=== PATIENT | male | born 1955 | race Caucasian/White ===

== ENCOUNTER 2021-01-04 10:05 | Inpatient (IN) ==
[2021-01-04] MEDS ORDERED: Isovue-370 500 ML BOTTLE IVP ONE (12:24)
[2021-01-04 13:19] LABS: Basophils # 0.1 K/mcL (0.0-0.2); Basophils % 0.4 %; Eosinophils # 0.1 K/mcL (0.0-0.6); Eosinophils % 0.7 %; Hematocrit 48.8 % (37.5-50.1); Hemoglobin 15.9 g/dL (12.9-16.9); Immature Granulocytes % 0.7 % (0-4); Lymphocytes # 2.1 K/mcL (0.6-4.6); Lymphocytes % 17.2 %; Mean Corpuscular HGB Conc 32.6 g/dL (31.6-35.5); Mean Corpuscular Hemoglobin 28.1 pg (28.0-33.3); Mean Corpuscular Volume 86.2 fL (83.0-100.0); Mean Platelet Volume 10.3 fL (9.4-12.4); Monocytes % 8.6 %; Neutrophils # 8.6 K/mcL (1.6-8.9); Platelet Count 234 K/mcL (140-400); Red Blood Count 5.66 M/mcL (4.19-5.50); Red Cell Distribution Width 13.2 % (11.5-14.5); Segmented Neutrophils % 72.4 %; White Blood Count 11.9 K/mcL (4.3-11.1)
[2021-01-04 13:37] LABS: BUN/Creatinine Ratio 19 (6-26); Blood Urea Nitrogen 20 mg/dL (8-23); Calcium 9.4 mg/dL (8.6-10.3); Carbon Dioxide 27 mEq/L (23-29); Chloride 103 mEq/L (98-107); Glucose 90 mg/dL (70-105); Osmolality,Calculated 286 (280-300); Potassium 3.9 mEq/L (3.5-5.1); Sodium 137 mEq/L (136-145); eGFR For African Americans > 60 (> 60); eGFR For Non-African Americans > 60 (> 60)
[2021-01-04] MEDS ORDERED: Piperacillin/Tazobactam 3.375 GM in 0.9 % Sodium Chloride Mini Bag 100 ML IVPB ONE (15:12)
[2021-01-04] MEDS ORDERED: Tdap (Boostrix) Vaccine 0.5 ML SYRINGE IM ONE (15:42)
[2021-01-04] MEDS ORDERED: Vancomycin 1,500 MG/265 ML IV.SOLN IVPB ONE (16:00)
[2021-01-04] MEDS ORDERED: Naloxone 0.4 MG/ML INJ IVP PRN (16:12)
[2021-01-04] MEDS ORDERED: Ondansetron 4 MG/2 ML VIAL IVP PRN (16:12)
[2021-01-04] MEDS ORDERED: Morphine Sulfate 2 MG/ML SYRINGE IVP PRN (16:15)
[2021-01-04 16:25] LABS: Troponin I 0.04 ng/mL (< 0.04)
[2021-01-04] MEDS: niCARdipine 20 MG/200 ML MLS IVC SCH ×2 (16:55→20:40)
[2021-01-04 17:45] LABS: Thyroid Stimulating Hormone 1.596 mcIU/mL (0.340-5.600)
[2021-01-04] MEDS ORDERED: *HR* LORazepam 2 MG/ML VIAL IVP PRN ×3 (20:49)
[2021-01-04] MEDS: Nicotine 21 MG PATCH.TD24 TD SCH (22:06)
[2021-01-05] MEDS: niCARdipine 20 MG/200 ML MLS IVC SCH ×5 (00:28→22:37)
[2021-01-05] MEDS: Piperacillin/Tazobactam 3.375 GM in 0.9 % Sodium Chloride Mini Bag 100 ML IVPB SCH ×3 (00:29→16:32)
[2021-01-05 02:02] LABS: BUN/Creatinine Ratio 19 (6-26); Blood Urea Nitrogen 17 mg/dL (8-23); Calcium 8.9 mg/dL (8.6-10.3); Carbon Dioxide 22 mEq/L (23-29); Chloride 103 mEq/L (98-107); Glucose 108 mg/dL (70-105); Osmolality,Calculated 284 (280-300); Potassium 3.3 mEq/L (3.5-5.1); Sodium 136 mEq/L (136-145); eGFR For African Americans > 60 (> 60); eGFR For Non-African Americans > 60 (> 60)
[2021-01-05] MEDS: Vancomycin 1,500 MG/265 ML IV.SOLN IVPB SCH ×3 (05:25→21:35)
[2021-01-05] MEDS ORDERED: Potassium Chloride 40 MEQ, Lidocaine 1% 2 ML in 0.9 % Sodium Chloride 500 ML IVPB ONE (07:56)
[2021-01-05] MEDS ORDERED: amLODIPine 5 MG TABLET PO SCH (09:15)
[2021-01-05] MEDS ORDERED: amLODIPine 5 MG TABLET PO ONE (14:53)
[2021-01-05] MEDS ORDERED: lisinopriL 10 MG TABLET PO SCH ×2 (15:00)
[2021-01-05] MEDS ORDERED: Lidocaine/EPI 1:200k 1% PF 10 ML VIAL ONE (17:40)
[2021-01-05] MEDS ORDERED: *HR* Propofol 200 MG/20 ML VIAL IVP ONE (18:13)
[2021-01-05] MEDS ORDERED: Ondansetron 4 MG/2 ML VIAL ONE (18:13)
[2021-01-05] MEDS ORDERED: *HR* Midazolam HCl 2 MG/2 ML VIAL ONE (18:13)
[2021-01-05] MEDS ORDERED: *HR* FentaNYL (PF) 100 MCG/2 ML VIAL ONE (18:13)
[2021-01-05] MEDS ORDERED: Lidocaine -MPF 2% 2 ML VIAL ONE (18:13)
[2021-01-05] MEDS ORDERED: CloNIDine Patch 0.1 MG PATCH (WEEKLY) ONE ×3 (18:26→18:27)
[2021-01-05] MEDS: Nicotine 21 MG PATCH.TD24 TD SCH (21:31)
[2021-01-06] MEDS: Piperacillin/Tazobactam 3.375 GM in 0.9 % Sodium Chloride Mini Bag 100 ML IVPB SCH ×3 (01:40→15:16)
[2021-01-06 01:44] LABS: Basophils % 0.2 %; Hematocrit 45.6 % (37.5-50.1); Hemoglobin 15.1 g/dL (12.9-16.9); Immature Granulocytes % 0.7 % (0-4); Lymphocytes # 0.8 K/mcL (0.6-4.6); Lymphocytes % 6.2 %; Mean Corpuscular HGB Conc 33.1 g/dL (31.6-35.5); Mean Corpuscular Hemoglobin 28.1 pg (28.0-33.3); Mean Corpuscular Volume 84.9 fL (83.0-100.0); Mean Platelet Volume 10.5 fL (9.4-12.4); Monocytes # 0.2 K/mcL (0.0-1.3); Monocytes % 1.6 %; Neutrophils # 11.1 K/mcL (1.6-8.9); Platelet Count 267 K/mcL (140-400); Red Blood Count 5.37 M/mcL (4.19-5.50); Red Cell Distribution Width 13.2 % (11.5-14.5); Segmented Neutrophils % 91.3 %; White Blood Count 12.2 K/mcL (4.3-11.1)
[2021-01-06 01:52] LABS: BUN/Creatinine Ratio 20 (6-26); Blood Urea Nitrogen 19 mg/dL (8-23); Calcium 9.1 mg/dL (8.6-10.3); Carbon Dioxide 24 mEq/L (23-29); Chloride 103 mEq/L (98-107); Glucose 225 mg/dL (70-105); Osmolality,Calculated 289 (280-300); Potassium 3.4 mEq/L (3.5-5.1); Sodium 135 mEq/L (136-145); eGFR For African Americans > 60 (> 60); eGFR For Non-African Americans > 60 (> 60)
[2021-01-06] MEDS: niCARdipine 20 MG/200 ML MLS IVC SCH ×4 (06:08→20:08)
[2021-01-06] MEDS: amLODIPine 5 MG TABLET PO SCH (07:22)
[2021-01-06] MEDS ORDERED: lisinopriL 10 MG TABLET PO SCH (09:00)
[2021-01-06] MEDS: Vancomycin 1,500 MG/265 ML IV.SOLN IVPB SCH ×2 (09:19→20:20)
[2021-01-06] MEDS ORDERED: lisinopriL 10 MG TABLET PO ONE (15:29)
[2021-01-06] MEDS: Nicotine 21 MG PATCH.TD24 TD SCH (22:51)
[2021-01-07] MEDS: Piperacillin/Tazobactam 3.375 GM in 0.9 % Sodium Chloride Mini Bag 100 ML IVPB SCH ×2 (00:20→08:08)
[2021-01-07] MEDS: niCARdipine 20 MG/200 ML MLS IVC SCH ×4 (00:33→12:36)
[2021-01-07 01:44] LABS: Basophils % 0.2 %; Hematocrit 43.7 % (37.5-50.1); Hemoglobin 14.6 g/dL (12.9-16.9); Immature Granulocytes % 0.6 % (0-4); Lymphocytes # 1.7 K/mcL (0.6-4.6); Lymphocytes % 9.3 %; Mean Corpuscular HGB Conc 33.4 g/dL (31.6-35.5); Mean Corpuscular Hemoglobin 28.7 pg (28.0-33.3); Mean Corpuscular Volume 85.9 fL (83.0-100.0); Mean Platelet Volume 10.3 fL (9.4-12.4); Monocytes % 5.6 %; Neutrophils # 15.5 K/mcL (1.6-8.9); Platelet Count 287 K/mcL (140-400); Red Blood Count 5.09 M/mcL (4.19-5.50); Red Cell Distribution Width 13.1 % (11.5-14.5); Segmented Neutrophils % 84.3 %; White Blood Count 18.3 K/mcL (4.3-11.1)
[2021-01-07 02:26] LABS: BUN/Creatinine Ratio 29 (6-26); Blood Urea Nitrogen 27 mg/dL (8-23); Calcium 8.8 mg/dL (8.6-10.3); Carbon Dioxide 22 mEq/L (23-29); Chloride 108 mEq/L (98-107); Glucose 112 mg/dL (70-105); Osmolality,Calculated 296 (280-300); Potassium 3.7 mEq/L (3.5-5.1); Sodium 140 mEq/L (136-145); eGFR For African Americans > 60 (> 60); eGFR For Non-African Americans > 60 (> 60)
[2021-01-07] MEDS: amLODIPine 5 MG TABLET PO SCH (08:08)
[2021-01-07] MEDS: Vancomycin 1,500 MG/265 ML IV.SOLN IVPB SCH (08:09)
[2021-01-07] MEDS ORDERED: lisinopriL 20 MG TABLET PO SCH ×2 (09:00)
[2021-01-07] MEDS ORDERED: hydroCHLOROthiazide 25 MG TABLET PO SCH (09:00)
[2021-01-07] MEDS ORDERED: hydrALAZINE 25 MG TABLET PO SCH ×2 (11:25→12:00)
[2021-01-07 14:28] VITALS: BP 147/82
== END 2021-01-07 16:45 | disposition left against medical advice (07) | DRG 579 ==
LOC: EMEROOARM 10:05 → 2NNU 10:05 → SUATTDRO 17:54 → 2NNU 18:51
PROVIDERS: ADMIT Internal Medicine; ATTEND Internal Medicine